=== PATIENT | male | born 1970 | race Caucasian/White ===

== ENCOUNTER → 2017-03-19 | Outpatient (CLI) | payer OTHER ==
[~2017-03-19] MED LIST: GADOBUTROL 10 ML VIAL IVP ONE; IOPAMIDOL (ISOVUE-300) 100 ML BTL IV ONE
== END ==
LOC: FIMAGING 12:28
DX: R90.89 Other abnormal findings on diagnostic imaging of central nervous system (principal); G44.099 Other trigeminal autonomic cephalgias (TAC), not intractable; G37.9 Demyelinating disease of central nervous system, unspecified; M51.34 Other intervertebral disc degeneration, thoracic region; M50.31 Other cervical disc degeneration, high cervical region; J40 Bronchitis, not specified as acute or chronic; K40.90 Unilateral inguinal hernia, without obstruction or gangrene, not specified as recurrent
CPT/HCPCS: A9585; Q9967